=== PATIENT | female | born 1955 | race Caucasian/White ===

== ENCOUNTER → 2017-09-01 | Outpatient (CLI) | payer OTHER ==
[~2017-09-01] MED LIST: IOPAMIDOL 370 MG/ML 200 ML INFUS..BTL INJ ONE; SODIUM CHLORIDE 0.9% 250ML 500 ML ONE; SODIUM CHLORIDE 0.9% 50ML 50 ML ONE
[2017-09-01 12:38] LABS: CREATININE, SERUM 1.05 mg/dL (0.57-1.11)
--- NOTE | 2017-09-01 14:03 | Diagnostic Imaging Report ---
PROCEDURE:CTA ABD/PEL/BILATERAL LOWER EXT RUNOFF COMPARISON:None. INDICATIONS:ATHEROSCLEROSIS TECHNIQUE: Multi-detector CT technology with Dose Reduction was employed. Images were obtained after the administration of 100 cc Isovue 370 intravenously. For optimization of anatomic evaluation, multiplanar and volume rendering reconstructions were performed. Advanced 3-D off-line postprocessing were performed on a dedicated stand-alone workstation under the direct supervision of the interpreting physician. DLP: 944.7 mGy-cm FINDINGS: Vasculature: The abdominal aorta is non-aneurysmal. There is mild calcified and noncalcified atherosclerotic plaque along the course of the abdominal aorta and visceral branch origins, without significant stenosis. The celiac axis, SMA, single left renal artery, and 2 right renal arteries are patent, as is the KANDICE origin. Pelvic vessels: There is calcified and noncalcified atherosclerotic plaque of the right common and external iliac arteries, without significant stenosis. Mild narrowing of the proximal right internal iliac artery with otherwise patent visceral branches. Calcified and noncalcified atherosclerotic plaque of the left common and external iliac arteries. Short segment severe stenosis of the proximal left common iliac artery as seen on series 3 image 65 and 66. The distal common iliac artery and external iliac artery are widely patent. Mild stenosis of the proximal internal iliac artery, with otherwise patent visceral branches. Right lower extremity: Femoral-popliteal segment: The common femoral artery is patent with calcified atherosclerotic plaque predominantly along its posterior wall. The femoral bifurcation is patent. The profunda femoris artery and proximal muscular branches are patent. The superficial femoral artery is patent with multiple foci of calcified and noncalcified atherosclerotic plaque. No significant stenosis. Similar findings of the popliteal artery, again without significant stenosis. Runoff: Anterior tibial artery is patent and is faintly visualized to its continuation as dorsalis pedis. Overall, evaluation of the runoff vessels is limited by contrast bolus timing. The tibioperoneal trunk is patent. The posterior tibial artery is patent to its continuation of the lateral plantar artery. The peroneal artery is patent to its expected termination at the ankle joint. Left lower extremity: Femoral-popliteal segment: The common femoral artery is patent with mild calcified atherosclerotic plaque along its posterior wall. Femoral bifurcation is patent. The profunda femoris artery and proximal muscular branches are widely patent. The superficial femoral artery is patent with scattered foci of calcified and noncalcified atherosclerotic plaque, without significant stenosis. Similar findings of the popliteal artery, also without significant stenosis. Runoff: The anterior tibial artery is patent to its continuation as dorsalis pedis artery. The tibioperoneal trunk is patent. The peroneal artery is patent to its termination at the ankle joint. The posterior tibial artery is patent and is visualized to its continuation of the lateral plantar artery. Abdominal and Pelvic soft-tissues and organs: Lung bases: Unremarkable. Liver: No focal hepatic lesion. Biliary: No intrahepatic biliary ductal dilatation. Gallbladder is unremarkable. Spleen: Heterogeneity of splenic attenuation reflects arterial phase of scan. Pancreas: 1.1 cm low attenuation lesion projecting from the anterior aspect of the proximal pancreatic body, average internal attenuation 9 Hounsfield units. No additional focal pancreatic lesion. Adrenal Glands: No nodules. Kidneys: No solid or cystic renal mass lesion. No hydronephrosis. No calculus. GI: The large bowel shows no evidence of distention or wall thickening. The appendix is normal. There is no small bowel dilatation to suggest obstruction. Peritoneum/Retroperitoneum: No ascites. No pneumoperitoneum. Reproductive organs: The urinary bladder is unremarkable. The uterus is neutral in position with an exophytic 3 cm nodular lesion projecting from the anterior body, likely representing a fibroid. No adnexal mass. Musculoskeletal: No osseous destructive lesions. Mild multilevel degenerative disc changes of the lumbar spine. CONCLUSION: Mild atherosclerotic disease of the abdominal aorta without aneurysmal dilatation or visceral branch origin stenosis. Short segment severe stenosis of the proximal left common iliac artery. Otherwise no significant iliac inflow stenosis. No significant femoral-popliteal segmental stenosis. Bilateral three-vessel lower extremity arterial runoff. Nonvascular findings include an exophytic uterine fibroid and an indeterminate 1.1 cm cystic lesion within the pancreatic body, which may represent a sidebranch intraductal papillary mucinous neoplasm (IPMN). Further characterization with MRCP is suggested. Dictated by: Esteban Newman M.D. on 09/01/2017 at 14:03 Electronically approved by: Esteban Newman M.D. on 09/01/2017 at 14:03
== END ==
LOC: EDBD 08-25 09:00 → CT 11:21
DX: I70.213 Atherosclerosis of native arteries of extremities with intermittent claudication, bilateral legs (principal)
CPT/HCPCS: 36415; 75635; 82565; 84520; J7050; Q9967

== ENCOUNTER → 2018-02-27 | Outpatient (CLI) | payer OTHER | LOC: CARD 09:29 | PROVIDERS: ATTEND Thoracic Surgery (Cardiothoracic Vascular Surgery) | DX: I73.9 Peripheral vascular disease, unspecified (principal) | CPT/HCPCS: 93922; 93925 ==